=== PATIENT | male | born 1990 | race Caucasian/White ===

== ENCOUNTER 2017-02-02 12:00 | Emergency (ER) | payer SELFPAY ==
[2017-02-02 12:04] VITALS: BP 140/90; BMI 23.7
--- NOTE | 2017-02-02 12:33 | DR.N/VMALE ---
HPI - Time Seen Time seen: 12:20 - Primary Care Physician Primary Care Physician: HEBERT - HPI Comment HPI Comment: NO FEVER. NO DIARRHEA OR MELENA. WORSE LAST NIGHT BUT GETTING BETTER TODAY. STILL NOT KEEPING DOWN LIQUID. - Complaints Chief Complaint Doctors Comments: NAUSEA AND VOMITING AND EPIGASTRIC PAIN SINCE YESTERDAY. Chief Complaint:: PT. C/O NAUSEA AND VOMITING THAT BEGAN YESTERDAY. PT. DENIES PAIN. PT. STATES THE VOMITING HAS SUBSIDED BUT STILL C/O NAUSEA. - Reviewed Nurses Notes Reviewed: Yes - Source History Provided: Patient - Mode of Arrival Mode of Arrival: Ambulatory - Timing Onset of Chief Complaint: 02/01/17 - Context Onset: Spontaneous Recent: None History of: None - Quality Quality: Bilious - Associated Signs and Symptoms Abdominal Pain Quality: Sharp Abdominal Pain Location: Epigastric Symptoms: Abdominal Pain PMH - PMH Past Medical History: No Past Surgical History: No Surgical History: No History - Family History History of Family Medical Conditions: No - Social History Does patient currently use any type of tobacco product: Yes Have you used tobacco products in the last 12 months: Yes Type of Tobacco Use: Cigarettes Does any household member use tobacco: No Alcohol Use: None Do you use any recreational Drugs:: No Lives With: Family Lives Where: Home - infectious screening In the last 2 months have you had wt loss of >10#?: NO Have you had fever, night sweats or hemotysis?: No Have you traveled outside the country in the last 6 months?: No Isolation: Standard ROS - Review of Systems Constitutional: Weakness, Fatigue Eyes: No Symptoms Reported ENTM: No Symptoms Reported Respiratoy: No Symptoms Reported Cardiovascular: No Symptoms Reported Gastrointestinal/Abdominal: Abdominal Pain, Nausea, Vomiting Neurological: No Symptoms Reported Musculoskeletal: No Symptoms Reported PE - Vital Signs Vitals: Temperature 97.9 F Pulse Rate 88 Respiratory Rate 17 Blood Pressure 140/90 O2 Sat by Pulse Oximetry 100 - General Limitations: No Limitations General Appearance: Alert - Head Head Exam: Normal Inspection - Eyes Eye exam: Normal Appearance - ENT ENT Exam: Normal External Ear Exam - Chest Chest Inspection: Symmetric Chest Wall Rise - Respiratory Respiratory Exam: Normal Lung Sounds Bilat Respiratory Exam: Bilateral Clear to Auscultation - Cardiovascular Cardiovascular Exam: Regular Rate, Normal Rhythm, Normal Heart Sounds - Abdominal Exam Abdominal Exam: Normal Bowel Sounds, Soft. negative: Tenderness - Rectal Rectal Exam: Deferred - Exam: Male: Deferred - Extremities Extremities Exam: Normal Inspection - Back Back Exam: Normal Inspection - Neurologic Neurological Exam: Alert, Oriented X3 - Skin Skin Exam: Normal Color MDM - Differential Diagnosis Differential Diagnosis: Considerations may Include:: Gastritis Course - Treatment Treatment: SEE ORDERS - Education/Counseling Education/Counseling: Patient, Education Educated On: Diagnosis, Needs for Follow Up ROR - Labs Reviewed Laboratory Results Reviewed?: Yes Laboratory: H. pylori IgG Antibody Negative (NEGATIVE) 02/02/17 12:43 - Diagnosis Discharge Problem: Nausea & vomiting Qualifiers: Vomiting type: bilious vomiting Qualified Code(s): R11.14 - Bilious vomiting Gastritis Qualifiers: Gastritis type: unspecified gastritis Chronicity: acute Gastritis bleeding: without bleeding Qualified Code(s): K29.00 - Acute gastritis without bleeding - Discharge Plan Disposition: HOME, SELF-CARE Condition: Stable Prescriptions: Ondansetron HCl [Zofran Tab 4 mg] 4 mg PO Q8H PRN #12 tab PRN Reason: Nausea/Vomiting - Follow ups/Referrals Follow ups/Referrals: N[facility],None [Primary Care Provider] - 3 days - Instructions Instructions: Gastritis, Adult, [id number], Nausea and Vomiting, Adult, Easy- to-Read
== END 2017-02-02 13:16 | disposition home or self-care (01) ==
LOC: ER 12:12
DX: K29.00 Acute gastritis without bleeding (principal); R11.14 Bilious vomiting
CPT/HCPCS: 36415; 86677; 99282